=== PATIENT | male | born 1965 ===

== ENCOUNTER 2017-09-30 05:35 | Day surgery (SDC) | payer BC ==
[2017-09-30] VITALS (10 sets, daily range): BP systolic 120–133; BP diastolic 75–88
[~2017-09-30] VITALS: Ht 170.2 cm; Wt 78.9 kg
[2017-09-30] MEDS ORDERED: AMLODIPINE BESYL5 MG ORAL (06:07)
[2017-09-30] MEDS ORDERED: [UNRECOGNIZED DRUG - OTHER] PO (06:07)
[2017-09-30] MEDS ORDERED: PREZCOBIX 8001 EACH PO (06:07)
[2017-09-30] MEDS ORDERED: OMEPRAZOLE10 M1 ORAL (06:07)
[2017-09-30] MEDS ORDERED: ATORVASTATIN CA20 MG ORAL (06:07)
[2017-09-30] MEDS ORDERED: VITAMIN D250000 UNI1 ORAL (06:07)
[2017-09-30] MEDS ORDERED: Alfentanil 2ml Inj ONE (06:13)
[2017-09-30] MEDS ORDERED: Ketamine 500mg Inj ONE (06:13)
[2017-09-30] MEDS ORDERED: Propofol 200mg/20ml IV ONE (06:14)
[2017-09-30] MEDS ORDERED: Lidocaine 1% MPF 10mg/ml 5ml ONE ×2 (06:14→06:15)
[2017-09-30] MEDS ORDERED: Dexamethasone 4mg/ml vial ONE ×2 (06:15→07:03)
[2017-09-30] MEDS ORDERED: LR 1000ml 1,000 ML IVLG SCH (06:40)
[2017-09-30] MEDS ORDERED: Atropine Inj 1mg/10ml Syr IV PRN (06:45)
[2017-09-30] MEDS ORDERED: Ketorolac 30mg Inj IV PRN ×2 (06:45)
[2017-09-30] MEDS ORDERED: Midazolam 2mg/2ml Inj IVP PRN (06:45)
[2017-09-30] MEDS ORDERED: Norco 5mg/325mg tab ORAL PRN (06:45)
[2017-09-30] MEDS ORDERED: Hydromorphone 0.5mg/0.5ml inj IVP PRN (06:45)
[2017-09-30] MEDS ORDERED: fentaNYL 100 mcg/2 mL IV PRN (06:45)
[2017-09-30] MEDS ORDERED: DiphenhydrAMINE 50mg/ml Inj IVP PRN (06:45)
[2017-09-30] MEDS ORDERED: Labetalol 5mg/ml 20ml vial IV PRN (06:45)
[2017-09-30] MEDS ORDERED: LORazepam Inj 2mg/ml 1ml IV PRN (06:45)
[2017-09-30] MEDS ORDERED: oxyCODONE HCL/Acetaminophen 5/325mg ORAL PRN (06:45)
[2017-09-30] MEDS ORDERED: HYDROcodone/Acetamin 7.5/325 tab ORAL PRN (06:45)
--- NOTE | 2017-09-30 06:45 | Anethesia Preoperative Eval ---
Anesthesia Pre-op PMH/ROS General Date of Evaluation: Sep 30, 2017 Time of Evaluation: 07:01 Anesthesiologist: Edward ASA Score: ASA 3 Mallampati Score Class I : Soft palate, uvula, fauces, pillars visible Class II: Soft palate, uvula, fauces visible Class III: Soft palate, base of uvula visible Class IV: Only hard plate visible Mallampati Classification: Class II Surgeon: Brandon Diagnosis: Anal Erosion Surgical Procedure: Transanal Excision Anesthesia History: none Family History: no anesthesia problems Allergies: Uncoded Allergies: seafood (Allergy, Severe, 09/30/17) THROAT SWELLS UP AND DIFFICULTY BREATHING Medications: see eMAR Past Medical History Cardiovascular: Reports: HTN, other - HL Hematology/Immune: Reports: other - HIV PSxH Narrative: Cholecystectomy, Bowel, Umbilical SX Anesthesia Pre-op Phys. Exam Physician Exam Last Vital Signs Date Time Temp Pulse Resp B/P (MAP) Pulse Ox O2 Delivery O2 Flow Rate FiO2 09/30/17 06:18 98.1 86 20 123/80 98 Room Air 98.1 Constitutional: NAD Neurologic: CN 2-12 intact Cardiovascular: RRR Respiratory: CTA Gastrointestinal: S/NT/ND Airway Exam Mallampati Score: Class II MO: full ROM: full Teeth: intact Anesthesia Pre-op A/P Risk Assessment & Plan Assessment: ASA 3 Plan: GA, BIS Status Change Before Surgery: No Pre-Antibiotics Dru Grams Cefoxitin IV Given Within 1 Hr of Incision: Yes Endy Young MD Sep 30, 2017 06:45
--- NOTE | 2017-09-30 06:49 | Immediate Post-Op Evaluation ---
Immediate Post-Op Evalulation Immediate Post-Op Evalulation Procedure: Transanal Excision Date of Evaluation: Sep 30, 2017 Time of Evaluation: 08:15 IV Fluids: 500 LR Blood Products: 0 Estimated Blood Loss: 10 Urinary Output: 0 Blood Pressure Systolic: 153 Blood Pressure Diastolic: 86 Pulse Rate: 106 Respiratory Rate: 16 O2 Sat by Pulse Oximetry: 100 Pain Score (1-10): 1 Nausea: No Vomiting: No Complications 0 Patient Status: awake, reacts, patent, none Hydration Status: adequate Dru Grams Cefoxitin IV Given Within 1 Hr of Incision: Yes Time Given: 07:16 Endy Young MD Sep 30, 2017 06:49
--- NOTE | 2017-09-30 06:49 | 48 Hour Post Anesthesia Eval ---
Post Anesthesia Evaluation Procedure: Transanal Excision Date of Evaluation: Sep 30, 2017 Time of Evaluation: 10:17 Blood Pressure Systolic: 138 0: 84 Pulse Rate: 99 Respiratory Rate: 18 Temperature (Fahrenheit): 98.6 O2 Sat by Pulse Oximetry: 100 Airway: patent Nausea: No Vomiting: No Pain Intensity: 1 Hydration Status: adequate Cardiopulmonary Status: Stable Mental Status/LOC: patient returned to baseline Follow-up Care/Observations: 0 Post-Anesthesia Complications: 0 Follow-up care needed: ready to discharge Endy Young MD Sep 30, 2017 06:49
[2017-09-30] MEDS ORDERED: Sodium Chloride 10ml vial INJ ONE (06:52)
[2017-09-30] MEDS: Acetic Acid 3% Solution 15ml TOPIC SCH (07:00)
[2017-09-30] MEDS ORDERED: NS Irrig 1000ml ONE (07:00)
[2017-09-30] MEDS ORDERED: LR 1000ml ONE (07:00)
[2017-09-30] MEDS ORDERED: Propofol 1,000mg/ 100ml btl IV ONE (07:00)
[2017-09-30] MEDS ORDERED: Sterile Water Irrig 1000ml IRRIG ONE (07:00)
--- NOTE | 2017-09-30 07:02 | Pre-Procedure Note/Attestation ---
Pre-Procedure Note/Attestation Complete Prior to Procedure Planned Procedure: not applicable Procedure Narrative: Excision and fulguration of anal condyloma Indications for Procedure Pre-Operative Diagnosis: anal condyloma Attestation I attest that I discussed the nature of the procedure; its benefits; risks and complications; and alternatives (and the risks and benefits of such alternatives ), prior to the procedure, with the patient (or the patient's legal client service representative). I attest that, if there was a reasonable possibility of needing a blood transfusion, the patient (or the patient's legal client service representative) was given the [facility] standardized written summary, pursuant to the [place] Blood Safety Act ([place] Health and Safety Code # 1645, as amended). I attest that I re-evaluated the patient just prior to the surgery and that there has been no change in the patient's H&P, except as documented below: LOPEZ BURRIS Sep 30, 2017 07:02
[2017-09-30] MEDS ORDERED: Ropivacaine 5mg/ml Vial 30ml INJ ONE (07:03)
[2017-09-30] MEDS ORDERED: EPINEPHrine 1mg/1ml Amp ONE (07:03)
[2017-09-30] MEDS ORDERED: Bupivacaine 0.25% Inj 30ml INJ ONE (07:03)
[2017-09-30] MEDS ORDERED: cefOXitin 2gm Inj ONE (07:21)
--- NOTE | 2017-09-30 08:02 | Brief Operative Note ---
Immediate Post Operative Note Operative Note Pre-op Diagnosis: anal condyloma Procedure: Excision and fulguration of anal condyloma Post-op Diagnosis: same as pre-op Findings: consistent w/pre-op dx studies Surgeon: Mary Burris MD Anesthesiologist: Endy Young MD Anesthesia: moderate sedation Specimen: yes Complications: none Condition: stable Fluids: see anesthesia record Estimated Blood Loss: minimal Drains: none Implant(s) used?: No MARY BURRIS Sep 30, 2017 08:02
--- NOTE | 2017-09-30 13:00 | Operative Note - Dictated ---
DATE OF OPERATION: 09/30/2017 PREOPERATIVE DIAGNOSIS: Anal condyloma. POSTOPERATIVE DIAGNOSIS: Anal condyloma. PROCEDURE: Excision and fulguration of anal condyloma. SURGEON: Mary Taylor M.D. ANESTHESIOLOGIST: Endy Young M.D. ANESTHESIA: Propofol sedation with local anesthetic. INDICATION FOR PROCEDURE: The patient is a 52-year-old male, who was sent to my office by his physician Dr. George Love and Dr. Ike Mcguire for colorectal surgical evaluation of the anal condyloma. The patient has a history of HIV and had an anal Pap smear, which showed some low-grade cells. The patient was found to have both external and internal anal condyloma. In light of the patient's findings, it was determined at this time to proceed with excision and fulguration of anal condyloma. DESCRIPTION OF PROCEDURE: Upon consent of the patient, the patient was brought to the operating room, placed in the prone audi-knife position on the operating room table. Once adequate sedation was established with propofol drip, the patient's buttocks were prepped and draped in usual surgical fashion. A 40 mL of 0.5% ropivacaine with epinephrine mixed with 6 mg of dexamethasone was used as a perianal and pudendal block. A Hill-Alcaraz retractors were placed in the anal canal. There was noted to be some external and internal anal condyloma. These were excised and sent off the field as separate specimens. The patient was noted to have some moderately large internal circumferential hemorrhoids. The anal canal was stained with 2% acetic acid and all areas of staining were electro-fulgurated as well. The anal canal was then irrigated. Hemostasis was confirmed. Any bleeding points were ligated with a [id number] 2-0 Vicryl suture. Sterile dry dressing was used as an outer dressing. Sponge, needle, and instrument counts were correct at the end of the case. The patient was awakened from anesthesia and brought to the postanesthesia recovery in stable condition. ESTIMATED BLOOD LOSS: 5 mL. DRAINS: None. SPECIMENS: External anal condyloma and internal anal condyloma. COMPLICATIONS: None. Mary Taylor M.D. DR: NOÉ JOB#: [id number] CC: Mary Taylor M.D.; Fax#: [phone] George MCGUIRE M.D.; FAX#: [phone]
== END 2017-09-30 10:20 | disposition home or self-care (01) ==
LOC: SUR 05:35
DX: A63.0 Anogenital (venereal) warts (principal); B20 Human immunodeficiency virus [HIV] disease; E78.2 Mixed hyperlipidemia; K21.9 Gastro-esophageal reflux disease without esophagitis; I10 Essential (primary) hypertension; Z90.49 Acquired absence of other specified parts of digestive tract
CPT/HCPCS: 46922; J0171; J0694; J1100; J1170; J1885; J2250; J2405; J2704; J2795; J3490; J7120; 94003; 94150